=== PATIENT | male | born 1960 | race Caucasian/White ===

== ENCOUNTER 2016-05-27 17:31 | Emergency (ER) | payer OTHER ==
[~2016-05-27] VITALS: Ht 162.6 cm; Wt 64.0 kg
[~2016-05-27 17:31] MED LIST: MOTRIN200 MG PO; TYLENOL; VICODIN
[2016-05-27 17:50] VITALS: BP 139/91
--- NOTE | 2016-05-27 18:19 | NUR ---
Patient ambulated to bed 04.
--- NOTE | 2016-05-27 18:29 | NUR ---
AAO PT BEING ASSESS BY DR SANTILLAN AT BEDSIDE
--- NOTE | 2016-05-27 18:29 | NUR ---
PATIENT PRESENTS TO ED WITH C/O LIGHT HEADED X1 DAY WITH DOUBLE VISION; DENIES N/V/D; SKIN IS PINK/WARM/DRY; AAOX4 WITH EVEN AND STEADY GAIT; LUNGS CLEAR BL; HR EVEN AND REGULAR; PT DENIES ANY FEVER, CP, SOB, OR COUGH AT THIS TIME; PATIENT STATES PAIN OF 0/10 AT THIS TIME; VSS; PATIENT POSITIONED FOR COMFORT; HOB ELEVATED; BEDRAILS UP X2; BED DOWN. ER MD MADE AWARE OF PT STATUS.
--- NOTE | 2016-05-27 18:30 | NUR ---
Dr. Allison evaluating patient at bedside.
--- NOTE | 2016-05-27 18:38 | NUR ---
Patient ambulated to CT with tech.
--- NOTE | 2016-05-27 18:40 | NUR ---
AAO, PT TAKEN TO CT VIA WHEEL CHAIR
[2016-05-27 19:17] VITALS: BP 121/81
--- NOTE | 2016-05-27 19:17 | NUR ---
Patient discharged with v/s stable. Written and verbal after care instructions given and explained. Patient verbalized understanding. Ambulatory with steady gait. All questions addressed prior to discharge. Advised to follow up with PMD.
== END 2016-05-27 19:17 | disposition home or self-care (01) ==
LOC: MED 17:31
DX: H53.2 Diplopia (principal); Z88.0 Allergy status to penicillin

== ENCOUNTER 2016-09-23 10:25 | Emergency (ER) | payer OTHER ==
[~2016-09-23] VITALS: Ht 162.6 cm; Wt 63.5 kg
[2016-09-23 10:32] VITALS: BP 141/87
--- NOTE | 2016-09-23 10:32 | NUR ---
Patient ambulated to bed 3 at this time,.
--- NOTE | 2016-09-23 10:35 | NUR ---
PATIENT PRESENTS TO ED WITH TOOTHACHE . PT STATES RIGHT LOWER MOLAR HURTS . DENIES N/V/D; SKIN IS PINK/WARM/DRY; AAOX4 WITH EVEN AND STEADY GAIT; LUNGS CLEAR BL; HR EVEN AND REGULAR; PT DENIES ANY FEVER, CP, SOB, OR COUGH AT THIS TIME; PATIENT STATES PAIN OF 2/10 AT THIS TIME; VSS; PATIENT POSITIONED FOR COMFORT; HOB ELEVATED; BEDRAILS UP X2; BED DOWN. ER MD MADE AWARE OF PT STATUS.
[2016-09-23 11:16] VITALS: BP 120/71
--- NOTE | 2016-09-23 11:20 | NUR ---
Patient discharged with v/s stable. Written and verbal after care instructions given and explained. Patient alert, oriented and verbalized understanding of instructions. Ambulatory with steady gait. All questions addressed prior to discharge. ID band removed. Patient advised to follow up with PMD. Rx of Motrin, Clindamycin, and Peridex given. Patient educated on indication of medication including possible reaction and side effects. Opportunity to ask questions provided and answered.
== END 2016-09-23 11:20 | disposition home or self-care (01) ==
LOC: MED 10:25
DX: K04.7 Periapical abscess without sinus (principal); Z88.0 Allergy status to penicillin; F17.210 Nicotine dependence, cigarettes, uncomplicated
CPT/HCPCS: 99283

== ENCOUNTER 2017-04-05 09:09 | Emergency (ER) | payer OTHER ==
[~2017-04-05] VITALS: Ht 160 cm; Wt 63.5 kg
[2017-04-05 09:12] VITALS: BP 141/70
--- NOTE | 2017-04-05 09:17 | NUR ---
PT AMBULATED TO BED 2.
--- NOTE | 2017-04-05 09:20 | NUR ---
56M BIB FAMILY C/O DIARRHEA WITH INTERMITTENT HEADACHE X 3 DAYS; PT STATES NO NAUSEA OR VOMITTING AT THIS TIME; ABDOMEN SOFT, NON-TENDER, ACTIVE BOWEL SOUNDS X 4 QUADRANTS; PT NOTED WITH SMALL, CLOSED "FEVER BLISTER" TO CHIN; PT STATES NO PAIN OR DISCOMFORT AT THIS TIME; PT AA&OX4, PERRLA, BL LUNG SOUNDS CLEAR, RR EVEN/UNLABORED, SKIN IS WARMA/DRY/INTACT AT THIS TIME; STEADY GAIT; PT RESTING IN BED WITH HOB ELEVATED AND IN LOWEST POSITION; POSITIONED FOR COMFORT; ER MD MADE AWARE OF STATUS. WILL CONTINUE TO MONITOR.
--- NOTE | 2017-04-05 09:21 | NUR ---
ER MD DR. VIGIL EVALUATING PT AT BEDSIDE.
[2017-04-05 09:41] VITALS: BP 122/85
--- NOTE | 2017-04-05 09:41 | NUR ---
Patient discharged with v/s stable. Written and verbal after care instructions given and explained. Patient alert, oriented and verbalized understanding of instructions. Ambulatory with steady gait. All questions addressed prior to discharge. ID band removed. Patient advised to follow up with PMD. Rx of CIPRO 500MG TAB, MOTRIN 600MG TAB & IMODIUM A-D 2MG CAP given. Patient educated on indication of medication including possible reaction and side effects. Opportunity to ask questions provided and answered.
== END 2017-04-05 09:41 | disposition home or self-care (01) ==
LOC: MED 09:09
DX: R19.7 Diarrhea, unspecified (principal); M54.2 Cervicalgia; F17.200 Nicotine dependence, unspecified, uncomplicated; Z88.0 Allergy status to penicillin
CPT/HCPCS: 99283

== ENCOUNTER 2020-06-27 08:23 | Emergency (ER) | payer OTHER ==
[~2020-06-27] VITALS: Ht 162.6 cm; Wt 64.9 kg
[2020-06-27 08:25] VITALS: BP 132/89
--- NOTE | 2020-06-27 08:30 | NUR ---
Pt ambulated to ER bed 11.
--- NOTE | 2020-06-27 08:32 | NUR ---
59 y/o male c/o 06/25 left lower tooth pain radiating to left ear and jaw with dizziness X4 days. Pt states he took motrin 1 hour ago, denies discharge to area. Pt states he has appointment with dentist on 07/01/20. Denies N/V, denies fever/chills. Denies PMH Allergies: PCN
--- NOTE | 2020-06-27 08:36 | NUR ---
Dr. Aguilar at pt bedside for further evaluation.
[2020-06-27] MEDS ORDERED: ONDA8TAB87 PO (08:48)
[2020-06-27] MEDS ORDERED: ACET-8386 PO (08:48)
[2020-06-27 08:54] VITALS: BP 132/89
--- NOTE | 2020-06-27 08:54 | NUR ---
Patient discharged with v/s stable. Written and verbal after care instructions given and explained. Patient alert, oriented and verbalized understanding of instructions. Ambulatory with steady gait. All questions addressed prior to discharge. ID band removed. Patient advised to follow up with PMD. Rx of hydrocodone-acetaminophen 3mg-325mg PO Q8H PRN pain, and Zofran 8mg PO Q8H PRN N/V given. Patient educated on indication of medication including possible reaction and side effects. Opportunity to ask questions provided and answered.
== END 2020-06-27 08:54 | disposition home or self-care (01) ==
LOC: MED 08:23
DX: K08.89 Other specified disorders of teeth and supporting structures (principal); Z88.0 Allergy status to penicillin
CPT/HCPCS: 99283

== ENCOUNTER 2021-09-22 08:19 | Emergency (ER) | payer OTHER ==
[~2021-09-22] VITALS: Ht 162.6 cm; Wt 67.8 kg
[~2021-09-22 08:19] MED LIST changes: +ACET-8386 PO; -MOTRIN200 MG PO; +ONDA8TAB87 PO; -TYLENOL; -VICODIN
[2021-09-22 08:20] VITALS: BP 137/89
--- NOTE | 2021-09-22 08:26 | NUR ---
PATIENT AMBULATED TO BED 8.
--- NOTE | 2021-09-22 08:52 | NUR ---
DR MCCORMICK AT BEDSIDE EVALUATING PATIENT.
[2021-09-22] MEDS ORDERED: CLIN300C2 PO (09:06)
[2021-09-22] MEDS ORDERED: NAPR-54 PO (09:06)
[2021-09-22] MEDS ORDERED: TRAM50TA1 PO (09:06)
--- NOTE | 2021-09-22 09:15 | NUR ---
NO NURSING CARE RENDERED. Patient discharged with v/s stable. Written and verbal after care instructions given. Patient alert, oriented and verbalized understanding of instructions. Ambulatory with steady gait. All questions addressed prior to discharge. ID band removed. Patient advised to follow up with PMD. Rx of CLINDAMYCIN, NAPROXEN AND TRAMADOL given. Opportunity to ask questions provided and answered.
--- NOTE | 2021-09-22 09:20 | NUR ---
The patient's care was reviewed and supervised by Kati Deng RN.
== END 2021-09-22 09:15 | disposition home or self-care (01) ==
LOC: MED 08:19
DX: K02.9 Dental caries, unspecified (principal); F17.290 Nicotine dependence, other tobacco product, uncomplicated; Z88.0 Allergy status to penicillin; Z79.899 Other long term (current) drug therapy
CPT/HCPCS: 99283

== ENCOUNTER 2022-06-20 16:01 | Emergency (ER) | payer OTHER ==
[~2022-06-20 16:01] MED LIST changes: -ACET-8386 PO; +ACET-8905 PO; +CLIN300C2 PO; +NAPR-54 PO; +TRAM-748 PO
--- NOTE | 2022-06-20 16:20 | NUR ---
PATIENT LEFT WITHOUT BEING TIRAGE. NO FURTHER CARE PROVIDED FOR PATIENT.
--- NOTE | 2022-06-20 16:20 | NUR ---
Chandu woodson in [facility] - 06/20/22 at 1628 by [email or web address] PATIENT LEFT WITHOUT BEING SEEN BY DR. DR VILLAFUERTE. NO FURTHER CARE PROVIDED FOR PATIENT.
== END 2022-06-20 16:20 | disposition left against medical advice (07) ==
LOC: MED 16:01
DX: K08.89 Other specified disorders of teeth and supporting structures (principal); Z53.21 Procedure and treatment not carried out due to patient leaving prior to being seen by health care provider